=== PATIENT | male | born 1985 | race Caucasian/White ===

== ENCOUNTER 2016-09-04 21:35 | Emergency (ER) | payer BC ==
[~2016-09-04] VITALS: Ht 177.8 cm; Wt 82.7 kg
[2016-09-04 21:40] VITALS: BP 139/81; PULSE 62; RESP 18; TEMP 97.9; O2SAT 97
[2016-09-04] MEDS ORDERED: LISI-515 PO (21:55)
[2016-09-04] MEDS ORDERED: ERYTHROMYCIN 0.5% OPTH OINT 3.5 GM TUBO LEFT EYE ONE (22:00)
--- NOTE | 2016-09-04 22:01 | PD ---
HPI Chief Complaint: Eye Problems/Injury Time Seen by Provider: 21:57 Travel History International Travel<30 days: No Contact w/Intl Traveler<30days: No Traveled to known affect area: No History of Present Illness HPI 31-year-old male visiting from [place] presents the emergency Department with eye irritation to the left eye. Patient states around noon time his contact "started acting funny" and he removed it. Since that time she' s had some increasing erythema, irritation, and discomfort in the left thigh. Vision seems to be intact. He is wearing his glasses upon arrival. He denies fever chills or other symptoms. No recent cold symptoms. He denies foreign body into the eye. He has no known drug allergies. PFSH Social History Alcohol Use: Yes Tobacco Use: No Substance Use: No Allergies-Medications (Allergen,Severity, Reaction): Coded Allergies: No Known Allergies (Unverified , 09/06/16) Reported Meds & Prescriptions Reported Meds & Active Scripts Active Ibuprofen 800 Mg Tab 800 Mg PO Q8H PRN Erythromycin Opth Oint 5 Mg/Gm Oint 1 Applic LEFT EYE QID Reported Lisinopril 20 Mg Tab 20 Mg PO DAILY Review of Systems Except as stated in HPI: all other systems reviewed are Neg General / Constitutional: No: Fever Eyes: Positive: Redness, Foreign Body Sensation, Pain, Tearing, No: Diploplia , Blurred Vision, Photophobia, Drainage, Blind Spots, Visual changes, Blindness HENT: No: Headaches Cardiovascular: No: Chest Pain or Discomfort Respiratory: No: Shortness of Breath Gastrointestinal: No: Abdominal Pain Genitourinary: No: Dysuria Musculoskeletal: No: Pain Skin: No Rash Neurologic: No: Weakness Psychiatric: No: Depression Endocrine: No: Polydipsia Hematologic/Lymphatic: No: Easy Bruising Physical Exam Narrative GENERAL: Patient is in moderate distress. SKIN: Warm and dry. Normal color. Normal turgor. HEAD: Atraumatic. Normocephalic. EYES: Pupils equal and round. No scleral icterus. Moderate conjunctival injection in the left with tearing, but without drainage. ENT: No nasal bleeding or discharge. Mucous membranes pink and moist. TMs are normal. Pharynx is normal. NECK: Trachea midline. Supple nontender. CARDIOVASCULAR: Regular rate and rhythm. RESPIRATORY: No accessory muscle use. MUSCULOSKELETAL: Extremities without clubbing, cyanosis, or edema. No obvious deformities. NEUROLOGICAL: Awake and alert. No obvious cranial nerve deficits. Motor grossly within normal limits. Five out of 5 muscle strength in the arms and legs. Normal speech. PSYCHIATRIC: Appropriate mood and affect; insight and judgment normal. Data Data Last Documented VS Vital Signs Date Time Temp Pulse Resp B/P Pulse Ox O2 Delivery O2 Flow Rate FiO2 09/04/16 21:59 20 09/04/16 21:40 97.9 62 139/81 97 Orders Erythromycin 0.5% Opth Oint (Ilotycin 0. (09/04/16 22:00) Ibuprofen (Motrin) (09/04/16 22:15) [facility] Medical Decision Making Medical Screen Exam Complete: Yes Emergency Medical Condition: Yes Differential Diagnosis Corneal abrasion. Foreign body. Corneal ulcer. Conjunctivitis. Narrative Course Patient is medically stable at time of exam. Fluorescein dye is applied to the left side and examined with a was lamp. Patient has small corneal abrasion on the anterior cornea almost center. There is no foreign body present. Patient is given ibuprofen 800 mg by mouth 1. Erythromycin ophthalmic ointment is placed in the eye, he should be maintained every 3-4 hours while awake for the next 5 days. Patient should refrain from wearing contacts for the next week. Patient can take ibuprofen as needed for pain. Patient should follow-up with an house coordinator if symptoms do not improve or worsen. Patient male was returned to the emergency department as needed. Diagnosis Primary Impression: Corneal abrasion, left Qualified Code: S05.02XA - Corneal abrasion, left, initial encounter Referrals: Speech Correction Consultant as needed Patient Instructions: General Instructions Additional Instructions: Patient is given ibuprofen 800 mg by mouth 1. Erythromycin ophthalmic ointment is placed in the eye, he should be maintained every 3-4 hours while awake for the next 5 days. Patient should refrain from wearing contacts for the next week. Patient can take ibuprofen as needed for pain. Patient should follow-up with an house coordinator if symptoms do not improve or worsen. Patient male was returned to the emergency department as needed. Med/Other Pt SpecificInfo: Prescription(s) given Scripts Ibuprofen 800 Mg [id number] Mg PO Q8H PRN (Pain/Inflammation) #30 TAB Prov:Almaz Palm MD 09/04/16 Erythromycin Opth Oint 5 Mg/Gm Oint1 Applic LEFT EYE QID #1 TUBE Ref 0 Prov:Almaz Palm MD 09/04/16 Disposition: 01 DISCHARGE HOME Condition: Stable Matthew Mackay Sep 04, 2016 22:01
[2016-09-04] MEDS ORDERED: IBUP800T23 PO (22:03)
[2016-09-04] MEDS ORDERED: ERYTOIN10 LEFT EYE (22:03)
[2016-09-04] MEDS ORDERED: IBUPROFEN 800 MG TAB PO ONE (22:15)
[2016-09-08] MEDS ORDERED: ATRO1SOL11 LEFT EYE (10:09)
[2016-09-08] MEDS ORDERED: AK-T0.3S LEFT EYE (10:09)
[2016-09-08] MEDS ORDERED: CEFA1SOL LEFT EYE (10:09)
== END 2016-09-04 22:42 | disposition home or self-care (01) ==
LOC: PHEFT 21:35
DX: S05.02XA Injury of conjunctiva and corneal abrasion without foreign body, left eye, initial encounter (principal)
CPT/HCPCS: 99283